=== PATIENT | male | born 1950 | race Caucasian/White ===

== ENCOUNTER 2020-07-13 11:25 | Emergency (ER) | payer OTHER ==
[~2020-07-13] VITALS: Ht 182.9 cm; Wt 90.7 kg
[2020-07-13] MEDS ORDERED: ESCITALOPRAM OX10 MG PO (11:36)
[2020-07-13] MEDS ORDERED: ELIQUIS5 MG PO (11:37)
[2020-07-13] MEDS ORDERED: MINIPRESS1 MG PO (11:37)
[2020-07-13] MEDS ORDERED: NORVASC10 MG PO (11:37)
--- NOTE | 2020-07-13 17:34 | EKG ---
[facility] [address] [facility] [place] [address] Signed Sinus tachycardia Rightward axis Borderline ECG No previous ECGs available Confirmed by YESI SUAREZ MD ([id number] on 07/13/2020 5:34:13 PM Electronically Signed By: YESI SUAREZ MD 07/13/20 1734 PATIENT NAME: HONGNAE CHAPAN Electrocardiogram DATE OF : 54 PHYSICIAN: YESI SUAREZ MD REPORT #: [id number] REPORT IS CONFIDENTIAL AND NOT TO BE RELEASED WITHOUT AUTHORIZATION
== END 2020-07-13 16:47 | disposition home or self-care (01) ==
LOC: ED 11:25
DX: R06.00 Dyspnea, unspecified (principal); R91.8 Other nonspecific abnormal finding of lung field; I10 Essential (primary) hypertension; Z20.828 Contact with and (suspected) exposure to other viral communicable diseases; Z87.891 Personal history of nicotine dependence; Z79.899 Other long term (current) drug therapy
CPT/HCPCS: 71045; 71260; 80053; 83605; 83880; 84484; 85025; 93005; 93010; 99285-25; C9803